=== PATIENT | male | born 1950 | race Caucasian/White ===

== ENCOUNTER 2023-07-18 19:24 | Inpatient (IN) | payer OTHER ==
[2023-07-18] MEDS ORDERED: Calcium Carbonate 500 MG ChewTAB PO PRN (21:59)
[2023-07-18] MEDS ORDERED: Acetaminophen 325 MG TAB PO PRN (21:59)
[2023-07-18] MEDS ORDERED: Senokot S 8.6-50 MG TAB PO PRN (21:59)
[2023-07-18 22:04] VITALS: BMI 22.5
[2023-07-18 22:34] LABS: #Eosinphils 0.1 thou/uL (0.0-0.7); #Monocytes 0.2 thou/uL (0.11-0.59); #Neutrophils 6.3 thou/uL (1.40-6.50); %Basophils 0.4 % (0.0-1.0); %Eosinophils 1.8 % (0.0-10.0); %Lymphocytes 4.7 % (21.0-51.0); %Monocytes 3.1 % (0.0-10.0); %Neutrophils 89.6 % (42.0-75.0); Hematocrit 31.1 % (42.0-52.0); Hemoglobin 10.3 g/dL (14.0-18.0); Mean Corpuscular HGB CONC 33.1 g/dL (32.0-36.0); Mean Corpuscular Hemoglobin 29.6 pg (27.0-31.0); Mean Corpuscular Volume 89.4 fl (78.0-98.0); Mean Platelet Volume 9.1 fL (7.4-10.4); Platelet Count 198 10x3/uL (130-400); RBC Distribution Width 13.8 % (11.5-14.5); Red Blood Cell (RBC) Count 3.48 mill/uL (4.70-6.10); White Blood Cell (WBC) Count 7.1 10x3/uL (4.8-10.8)
[2023-07-18 22:58] LABS: ALT (SGPT) 9 U/L (8-55); AST (SGOT) 11 U/L (5-34); Albumin 3.9 g/dL (3.4-4.8); Alkaline Phosphatase 90 U/L (40-110); Anion Gap 12 mmol/L (10-20); BUN (Urea Nitrogen) 17 mg/dL (8.4-25.7); Bilirubin, Total 0.3 mg/dL (0.2-1.2); Calc. Creatinine Clearance 74 mL/min (70-130); Calcium 8.8 mg/dL (7.8-10.44); Carbon Dioxide 24 mmol/L (23-31); Chloride 106 mmol/L (98-107); Estimated GFR 92; Globulin 2.7 g/dL (2.4-3.5); Glucose 104 mg/dL (83-110); Potassium 3.9 mmol/L (3.5-5.1); Protein, Total 6.6 g/dL (5.8-8.1); Sodium 138 mmol/L (136-145)
[2023-07-18] MEDS: Dexamethasone 4 mg/ml Vial SLOW IVP SCH (23:34)
[2023-07-19] MEDS ORDERED: Albuterol 200 PUFF (6.7GM INHALER) INH PRN (00:56)
[2023-07-19] MEDS ORDERED: Diazepam 5 MG TAB PO PRN (06:26)
[2023-07-19 08:31] VITALS: BP 159/74
[2023-07-19] MEDS: Ferrous Sulfate 325 MG TAB PO SCH (09:00)
[2023-07-19] MEDS: Famotidine 20 MG TAB PO SCH (09:00)
[2023-07-19] MEDS: Loratadine 10 MG TAB PO SCH (09:00)
[2023-07-19] MEDS: Lisinopril 10 MG TAB PO SCH (09:00)
[2023-07-19] MEDS: Sertraline 100 MG TAB PO SCH (09:00)
[2023-07-19] MEDS: Famotidine/PF 20 mg/2ml Vial SLOW IVP SCH (09:01)
[2023-07-19] MEDS: Ondansetron PF 4 MG/2 ML Vial IVP PRN (09:02)
[2023-07-19] MEDS: Ipratropium 200 Puff Oral Inhaler INH SCH (09:45)
[2023-07-19] MEDS ORDERED: Magnevist 469MG/ML 20 ML VIAL ONE (15:47)
[2023-07-19] MEDS: Ipratropium/Albuterol 3 ML NEB NEB SCH (16:21)
[2023-07-19] MEDS: Acetaminophen/Codeine 30-300mg Tablet PO PRN (16:35)
[2023-07-19] MEDS: Enoxaparin 40 MG (0.4 mL) SYRINGE SC SCH (16:36)
[2023-07-19] MEDS ORDERED: Dexamethasone 4 mg/ml Vial SLOW IVP SCH (18:00)
[2023-07-19] MEDS: Dexamethasone 4 MG TAB PO SCH (20:00)
[2023-07-20] MEDS: Enoxaparin 40 MG (0.4 mL) SYRINGE SC SCH (08:25)
[2023-07-20] MEDS ORDERED: Ipratropium/Albuterol 3 ML NEB NEB PRN (11:19)
[2023-07-20] MEDS: Ondansetron ODT 4 MG TAB PO PRN (12:51)
[2023-07-20] MEDS: Acetaminophen/Codeine 30-300mg Tablet PO PRN (19:55)
[2023-07-21 10:17] LABS: #Eosinphils 0.1 thou/uL (0.0-0.7); #Monocytes 0.2 thou/uL (0.11-0.59); #Neutrophils 6.8 thou/uL (1.40-6.50); %Basophils 0.3 % (0.0-1.0); %Eosinophils 1.4 % (0.0-10.0); %Monocytes 2.1 % (0.0-10.0); %Neutrophils 87.8 % (42.0-75.0); Hematocrit 35.3 % (42.0-52.0); Hemoglobin 11.3 g/dL (14.0-18.0); Mean Corpuscular Hemoglobin 29.4 pg (27.0-31.0); Mean Corpuscular Volume 91.7 fl (78.0-98.0); Mean Platelet Volume 9.3 fL (7.4-10.4); Platelet Count 239 10x3/uL (130-400); RBC Distribution Width 13.9 % (11.5-14.5); Red Blood Cell (RBC) Count 3.85 mill/uL (4.70-6.10); White Blood Cell (WBC) Count 7.7 10x3/uL (4.8-10.8)
[2023-07-21 10:41] LABS: Anion Gap 16 mmol/L (10-20); BUN (Urea Nitrogen) 31 mg/dL (8.4-25.7); Calc. Creatinine Clearance 66 mL/min (70-130); Calcium 9.3 mg/dL (7.8-10.44); Carbon Dioxide 25 mmol/L (23-31); Chloride 103 mmol/L (98-107); Estimated GFR 85; Glucose 126 mg/dL (83-110); Potassium 4.5 mmol/L (3.5-5.1); Sodium 139 mmol/L (136-145)
[2023-07-21 16:27] VITALS: TEMP 98.4
== END 2023-07-21 19:15 | disposition short-term general hospital (02) | DRG 54 ==
LOC: MSONC 19:24 → EEVIPCON 19:24 → CCU 07-19 14:48
PROVIDERS: ADMIT Student in an Organized Health Care Education/Training Program; ATTEND Hospitalist
DX: C79.31 Secondary malignant neoplasm of brain (principal); G93.6 Cerebral edema; G91.1 Obstructive hydrocephalus; C34.91 Malignant neoplasm of unspecified part of right bronchus or lung; Z51.5 Encounter for palliative care; Z66 Do not resuscitate; J44.9 Chronic obstructive pulmonary disease, unspecified; N40.0 Benign prostatic hyperplasia without lower urinary tract symptoms; K21.9 Gastro-esophageal reflux disease without esophagitis; I10 Essential (primary) hypertension; G25.81 Restless legs syndrome; I71.40 Abdominal aortic aneurysm, without rupture, unspecified; F41.9 Anxiety disorder, unspecified; F32.A Depression, unspecified; Z79.51 Long term (current) use of inhaled steroids; Z87.891 Personal history of nicotine dependence; Z79.899 Other long term (current) drug therapy; Z98.890 Other specified postprocedural states; R91.8 Other nonspecific abnormal finding of lung field; D64.9 Anemia, unspecified; K64.9 Unspecified hemorrhoids
CPT/HCPCS: 36415; 70450; 70553; 71260; 74177; 80048; 80053; 83690; 85025; 87635; 94640; 94760; 96374; A9579; J1100; J1650; J2405; J7620; J8540; Q0162; Q9967; S0028